=== PATIENT | male | born 2000 | race Caucasian/White ===

== ENCOUNTER 2025-04-18 13:51 | Outpatient (CLI) | payer OTHER, SELFPAY ==
--- OUTSIDE RECORDS SUMMARY | 2025-04-18 13:56 | XMS_ITS | Clinical Summary ---
Author Organization [facility] Address [facility] [place] [address] Care Team Providers Care Grinding Wheel Dresser Name Role Phone None, Provider MD Primary Care Provider Unavaila ble Allergies No known active allergies Medications escitalopram 20 MG tablet Take 20 mg by mouth daily. 03/19/2021 Active lamoTRIgine 25 MG tablet Take 25 mg by mouth daily. 03/18/2021 Active VYVANSE 30 MG capsule Take 30 mg by mouth daily. 03/18/2021 Active LORazepam 1 MG tablet TAKE 1 TABLET BY MOUTH ONCE A DAY NEEDED FOR ANXIETY 03/20/2021 Active Active Problems No known active problems Family History Medical History Relation Comments No Known Problems Father No Known Problems Mother Relation Status Comments Father Mother Social History Tobacco Use Types Packs/Day Years Used Date Smoking Tobacco: Never Smokeless Tobacco: Never Sex and Gender Information Value Date Recorded Sex Assigned at Not on file Legal Sex Male 9:42 PM CDT Gender Identity Not on file Sexual Orientation Not on file Last Filed Vital Signs Vital Sign Reading Time Taken Comments Blood Pressure 116/66 04/02/2021 1:56 PM CDT Pulse 84 04/02/2021 1:56 PM CDT Temperature 36.9 C (98.4 F) 04/02/2021 1:56 PM CDT Respiratory Rate 18 04/02/2021 1:56 PM CDT Oxygen Saturation 98% 04/02/2021 1:56 PM CDT Inhaled Oxygen Concentration - - Weight 81.6 kg (180 lb) 04/02/2021 1:56 PM CDT Height 177.8 cm (5' 10) 04/02/2021 1:56 PM CDT Body Mass Index 25.83 04/02/2021 1:56 PM CDT Plan of Treatment Health Maintenance Due Date Last Done Comments Annual Physical 2001 HPV Vaccines (1 - Male 3-dos e series) 2013 Hepatitis C 2016 DTaP, Tdap and Td Vaccines ( 1 - Tdap) 2017 Hepatitis B Vaccines (1 of 3 - 19+ 3-dose series) 2017 COVID-19 Vaccine (1 - 2023-2 5 season) 2024 Meningococcal B Vaccine Aged Out No l onger eligible based on patient's age to complete this topic Meningococcal Vaccine Aged Out No david viky eligible based on patient's age to complete this topic Pneumococcal Vaccine: Pediat rics (0 to 5 Years) and At-Risk Patients (6 to 49 Years) Aged Out No longer eligible b ased on patient's age to complete this topic RSV Immunizations Under 20 Months Aged Out No longer eligible based on patient's age to complete this topic Insurance Care Teams Grinding Wheel Dresser Relationship Specialty Start Date End Date None, Provider, PCP - General 04/02/21
[2025-04-18 18:45] LABS: Hematocrit 46.7 % (42.0-52.0); Hemoglobin 16.1 g/dL (14.0-18.0); Immature Granulocyte Percent A 0.2 % (0-0.5); Lymphocytes Absolute Auto 1.05 K/mm3 (0.9-3.2); Mean Corpuscular HGB Conc 34.5 g/dl (32-36); Mean Corpuscular Hemoglobin 33.1 pg (26-34); Mean Corpuscular Volume 95.9 fl (80-100); Nucleated Red Blood Cells Absolute Auto 0.000 K/mm3 (0.0-0.012); Nucleated Red Blood Cells Perc 0.0 % (0.0-0.2); Platelet Count Result 212 k/mm3 (150-375); Red Blood Count 4.87 M/mm3 (4.6-6.20); White Blood Count 6.2 K/mm3 (4.5-10.0)
[2025-04-18 19:18] LABS: Add Urine Microscopic? NO; Appearance Urine Clear (Clear); Glucose Urine UA Negative (Negative); Leukocyte Esterase Ur Negative LEU/UL (Negative); Nitrate Urine Negative (Negative); Specific Grav Ur 1.010 (1.001-1.035)
[2025-04-18 19:43] LABS: Alanine Aminotransferase 40 U/L (6-50); Albumin Level 4.5 g/dL (3.5-5.1); Alkaline Phosphatase 64 U/L (38-126); Anion Gap 10 mmol/L (4-12); Aspartate Amino Transferase 43 U/L (17-59); Bilirubin,Total 0.7 mg/dL (0.2-1.3); Blood Urea Nitrogen 9 mg/dL (9-20); CRP < 0.5 mg/dL (<1.0); Calcium 9.7 mg/dL (8.4-10.2); Carbon Dioxide 28 mmol/L (22-30); Chloride 100 mmol/L (98-107); Creatine Kinase 198 U/L (55-170); Estimated Glomerular Filt Rate > 60; Glucose 75 mg/dL (65-110); Potassium 3.8 mmol/L (3.4-5.0); Sodium 138 mmol/L (137-145); Total Protein 7.7 g/dL (6.3-8.2)
[2025-04-18 20:02] LABS: Free T3 5.55 pg/mL (2.32-6.09)
[2025-04-18 20:32] LABS: Free T4 Free Thyroxine 1.10 ng/dL (0.78-2.19)
[2025-04-18 20:51] LABS: Vitamin B12 945.0 pg/mL (239-931)
== END 2025-04-18 13:52 | disposition home or self-care (01) ==
LOC: ANHGOSHLAB 13:52
PROVIDERS: PCP Internal Medicine; Visit Provider Internal Medicine
DX: F41.1 Generalized anxiety disorder (principal); R53.83 Other fatigue; M79.606 Pain in leg, unspecified; E86.0 Dehydration
CPT/HCPCS: 36415; 80053; 81003; 82550; 82607; 82746; 84439; 84481; 85025; 85652; 86140

== ENCOUNTER 2025-05-29 11:18 | Outpatient (CLI) | payer OTHER, SELFPAY ==
--- OUTSIDE RECORDS SUMMARY | 2025-05-29 11:43 | XMS_ITS | Clinical Summary ---
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 Gender Identity Not on file Sexual Orientation Not on file Last Filed Vital Signs Vital Sign Reading Time Taken Comments Blood Pressure 126/58 11/13/2012 2:20 PM COUNTY MANAGER Pulse 63 11/13/2012 2:20 PM COUNTY MANAGER Temperature 36.3 C (97.3 F) 11/13/2012 2:20 PM COUNTY MANAGER Respiratory Rate 16 11/13/2012 2:20 PM COUNTY MANAGER Oxygen Saturation 98% 11/13/2012 2:20 PM COUNTY MANAGER Inhaled Oxygen Concentration - - Weight - - Height - - Body Mass Index - - Plan of Treatment Not on file Insurance [facility] Cross Blue Shield Commercial (POS, PPO, etc) Address: [phone] [place] [address] [place] [address] Cross Blue Shield Commercial (POS, PPO, etc) Address: [phone] [place] [address] Cross Blue Shield Commercial (POS, PPO, etc) Address: [phone] [place] [address] [employer] [facility] Care Teams Aoc Operations Intelligence Chief Relationship Specialty Start Date End Date Identified, No Provider PCP - General 11/13/12
--- OUTSIDE RECORDS SUMMARY | 2025-05-29 11:43 | XMS_ITS | Encounter Summary ---
Author Organization [facility] Address [address] [place] [address] Phone Care Team Providers Care As400 Consultant Name Role Phone Identified, No Provider Primary Care Provider Un available Reason for Visit * Reason Onset Date Comments Clinical SX During Covid-19 Outbreak 07/11/2020 Encounter Details Date Type Department Care Team (Late st Contact Info) Description 07/11/2020 Telephone Non [place] Referring Docs Identified, No Provider Clinical SX During Covid-19 Outbreak Social History Tobacco Use Types Packs/Day Years Used Date Smoking Tobacco: Never Assessed Sex and Gender Information Value Date Recorded Sex Assigned at Not on file Legal Sex Male 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 Yes 07/11/2020 1:05 PM CDT documented as of this encounter Miscellaneous Notes * Telephone Encounter - Kelechi Diaz - 07/11/2020 11:10 AM CDT Patient called regarding possible COVID symptom of congestion / prolonged exposure to COVID positive individual. Patient screened through [facility] COVID screening questions and advised to present to the approved testing site. Patient advised clinical staff on-site may re-screen. Non [place] Patient documented in this encounter Plan of Treatment Not on file documented as of this encounter Visit Diagnoses Not on filedocumented in this encounter Care Teams As400 Consultant Relationship Specialty Start Date End Date Identified, No Provider PCP - General 11/13/12 documented as of this encounter
[2025-05-29 13:23] LABS: Creatine Kinase 246 U/L (55-170)
== END 2025-05-29 11:19 | disposition home or self-care (01) ==
LOC: ANHGOSHLAB 11:19
PROVIDERS: PCP Internal Medicine; Visit Provider Internal Medicine
DX: M62.81 Muscle weakness (generalized) (principal); R74.8 Abnormal levels of other serum enzymes
CPT/HCPCS: 36415; 82085; 82550; 83615

== ENCOUNTER 2025-08-15 09:05 | Outpatient (CLI) | payer OTHER, SELFPAY ==
--- OUTSIDE RECORDS SUMMARY | 2025-08-15 09:40 | XMS_ITS | Encounter Summary ---
Author Organization [facility] Address [address] [place] [address] Phone Care Team Providers Care Regional Sales Associate Name Role Phone Identified, No Provider Primary [...] on file Legal Sex Male 2:07 PM JOB SETTER Gender Identity Not on file Sexual Orientation [...] to COVID positive individual. Patient screened through [facility] COVID screening questions and advised to present to the approved testing site. Patient advised clinical staff on-site may re-screen. Non [place] Patient documented in this encounter Plan of Treatment Not on file documented as of this encounter Visit Diagnoses Not on filedocumented in this encounter Care Teams Regional Sales Associate Relationship Specialty Start Date End Date Identified, No Provider PCP - General 11/13/12 documented as of this encounter
--- OUTSIDE RECORDS SUMMARY | 2025-08-15 09:40 | XMS_ITS | Clinical Summary ---
Author Organization [facility] Address [facility] [place] [address] Care Team Providers Care Crankshaft Balancer Name Role Phone None, Provider MD Primary [...] 3-dose series) 2017 COVID-19 Vaccine (1 - 2024-2 6 season) 2025 Influenza Adult (#1) 2025 Hepatitis A Vaccines Aged Out No long er eligible based on patient's age to complete this topic Meningococcal B Vaccine Aged Out No l [...] to complete this topic Insurance Care Teams Crankshaft Balancer Relationship Specialty Start Date End Date None, Provider, PCP - General 04/02/21
--- OUTSIDE RECORDS SUMMARY | 2025-08-15 09:40 | XMS_ITS | Clinical Summary ---
Author Organization [facility] Address [address] [place] [address] Phone Care Team Providers Care Director Commercial Sales Name Role Phone Identified, No Provider Primary Care Provider Un available Allergies No known active allergies Medications No known medications Social History Tobacco Use Types Packs/Day Years Used Date Smoking Tobacco: Never Assessed Sex and Gender Information Value Date Recorded Sex Assigned at Not on file Legal Sex Male 2:07 PM DIRECTOR OF GRADUATE MEDICAL EDUCATION Gender Identity Not on file Sexual Orientation Not on file Last Filed Vital Signs Vital Sign Reading Time Taken Comments Blood Pressure 126/58 11/13/2012 2:20 PM DIRECTOR OF GRADUATE MEDICAL EDUCATION Pulse 63 11/13/2012 2:20 PM DIRECTOR OF GRADUATE MEDICAL EDUCATION Temperature 36.3 C (97.3 F) 11/13/2012 2:20 PM DIRECTOR OF GRADUATE MEDICAL EDUCATION Respiratory Rate 16 11/13/2012 2:20 PM DIRECTOR OF GRADUATE MEDICAL EDUCATION Oxygen Saturation 98% 11/13/2012 2:20 PM DIRECTOR OF GRADUATE MEDICAL EDUCATION Inhaled Oxygen Concentration - - Weight - - Height - - Body Mass Index - - Plan of Treatment Not on file Insurance [facility] Cross Blue Shield Commercial (POS, PPO, etc) Address: [phone] [place] [address] [place] [address] Cross Blue Shield Commercial (POS, PPO, etc) Address: [phone] [place] [address] Cross Blue Shield Commercial (POS, PPO, etc) Address: [phone] [place] [address] [employer] [facility] Care Teams Director Commercial Sales Relationship Specialty Start Date End Date Identified, No Provider PCP - General 11/13/12
[2025-08-15 20:08] LABS: Alanine Aminotransferase 51 U/L (6-50); Albumin Level 4.8 g/dL (3.5-5.1); Alkaline Phosphatase 61 U/L (38-126); Anion Gap 9 mmol/L (4-12); Aspartate Amino Transferase 56 U/L (17-59); Bilirubin,Total 0.7 mg/dL (0.2-1.3); Blood Urea Nitrogen 18 mg/dL (9-20); CRP < 0.5 mg/dL (<1.0); Calcium 9.8 mg/dL (8.4-10.2); Carbon Dioxide 25 mmol/L (22-30); Chloride 104 mmol/L (98-107); Creatine Kinase 240 U/L (55-170); Estimated Glomerular Filt Rate > 60; Glucose 80 mg/dL (65-110); Potassium 4.2 mmol/L (3.4-5.0); Sodium 138 mmol/L (137-145); Total Protein 7.8 g/dL (6.3-8.2)
[2025-08-15 20:33] LABS: Hematocrit 50.3 % (42.0-52.0); Hemoglobin 17.5 g/dL (14.0-18.0); Immature Granulocyte Percent A 0.2 % (0-0.5); Lymphocytes Absolute Auto 1.18 K/mm3 (0.9-3.2); Mean Corpuscular HGB Conc 34.8 g/dl (32-36); Mean Corpuscular Hemoglobin 32.2 pg (26-34); Mean Corpuscular Volume 92.6 fl (80-100); Nucleated Red Blood Cells Absolute Auto 0.000 K/mm3 (0.0-0.012); Nucleated Red Blood Cells Perc 0.0 % (0.0-0.2); Platelet Count Result 225 k/mm3 (150-375); Red Blood Count 5.43 M/mm3 (4.6-6.20); White Blood Count 5.6 K/mm3 (4.5-10.0)
[2025-08-21 08:07] LABS: ANA by IFA Rfx Titer/Pattern Negative (.)
== END 2025-08-15 09:06 | disposition home or self-care (01) ==
LOC: ANHGOSHLAB 09:07
PROVIDERS: PCP Internal Medicine; Visit Provider Internal Medicine
DX: M62.81 Muscle weakness (generalized) (principal); R53.83 Other fatigue; R74.8 Abnormal levels of other serum enzymes; E24.9 Cushing's syndrome, unspecified
CPT/HCPCS: 36415; 80053; 82533; 82550; 85025; 85652; 86038; 86140